=== PATIENT | male | born 1980 | race Hispanic/Latino ===

== ENCOUNTER 2017-01-28 01:11 | Emergency (ER) | payer OTHER ==
[2017-01-28 01:28] VITALS: RESP 18; TEMP 98.1
[2017-01-28] MEDS ORDERED: Oxycodone/Acetaminophen 5/325 mg Tab PO STA (02:43)
--- NOTE | 2017-01-28 02:47 | ED PDOC ---
Arrival/HPI - General Chief Complaint: Dental Pain Time Seen by Provider: 01/28/17 02:26 Historian: Patient - History of Present Illness Narrative History of Present Illness (Text): 01/28/17 02:52 37-year-old male presents today with left-sided dental pain that is worsened over the past 2 days. Patient states about 2 weeks ago he chipped his tooth and over the past 2 days the pain has gradually increased. Patient states he's been taking some Motrin for pain without improvement. Patient states he tried to make it through the night today but came in due to severe pain. Patient states he will see a dentist tomorrow. Patient denies fevers or chills. Denies trismus or drooling. No trauma or injury. No other complaints Time/Duration: Other (2 days) Symptom Onset: Gradual Symptom Course: Worsening Quality: Aching, Throbbing Severity Level: 8 Past Medical History - Provider Review Nursing Documentation Reviewed: Yes - Travel History Have you recently traveled outside [place] w/in the past 3 mons?: No - Tetanus Immunization Tetanus Immunization: Unknown - Psychiatric Hx Substance Use: Yes Family/Social History - Physician Review Nursing Documentation Reviewed: Yes Family/Social History: Unknown Family HX Smoking Status: y Hx Alcohol Use: Yes Hx Substance Use: Yes Allergies/Home Meds Allergies/Adverse Reactions: Allergies No Known Allergies Allergy (Verified 01/28/17 01:31) Review of Systems - Review of Systems Constitutional: absent: Fatigue, Fevers ENT: Other (Left lower dental pain) Respiratory: absent: SOB, Cough Cardiovascular: absent: Chest Pain, Palpitations Gastrointestinal: absent: Abdominal Pain, Nausea, Vomiting Musculoskeletal: absent: Arthralgias Skin: absent: Rash, Pruritis Psychiatric: absent: Anxiety, Depression Physical Exam Vital Signs Reviewed: Yes Vital Signs Temp Pulse Resp BP Pulse Ox 01/28/17 01:22 98.1 F 73 18 138/81 95 Temperature: Afebrile Blood Pressure: Normal Pulse: Regular Respiratory Rate: Normal Appearance: Positive for: Well-Appearing, Non-Toxic, Comfortable Pain Distress: None Mental Status: Positive for: Alert and Oriented X 3 - Systems Exam Head: Present: Atraumatic. No: Swelling Mouth: Present: Moist Mucous Membranes, Normal Lips, Normal Tounge. No: Drooling, Trismus, Normal Teeth (Left lower molar dental fracture and no edema no erythema no ecchymosis. Positive tenderness.) Pharnyx: Present: Normal. No: ERYTHEMA, EXUDATE Neck: Present: Normal Range of Motion, Trachea Midline. No: Lymphadenopathy Respiratory/Chest: Present: Clear to Auscultation, Good Air Exchange. No: Respiratory Distress, Accessory Muscle Use Cardiovascular: Present: Regular Rate and Rhythm, Normal S1, S2. No: Murmurs Medical Decision Making ED Course and Treatment: 01/28/17 02:49 Patient is nontoxic well-appearing in no distress with stable vital signs No trismus or drooling, moist mucous membranes Amoxicillin toradol percocet Patient reassessment: Patient is feeling better after medications. I advised follow-up with the dentist within the next 2 days. I advised immediate return is symptoms worsen persist or if new concerning symptoms develop Patient verbalizes understanding of discharge instructions and need for immediate followup. Impression: Toothache Motrin every 6 hours as needed for pain Amoxicillin 1 tablet 3 times daily x 10 days percocet; 1 tablet every 6 hours as needed for moderate to severe pain; may cause drowsiness. Follow-up with the dentist within the next 2 days Return immediately if symptoms worsen persist or if new concerning symptoms develop Disposition/Present on Arrival - Present on Arrival Any Indicators Present on Arrival: No History of DVT/PE: No History of Uncontrolled Diabetes: No Urinary Catheter: No History of Decub. Ulcer: No History Surgical Site Infection Following: None - Disposition Have Diagnosis and Disposition been Completed?: Yes Diagnosis: Toothache Disposition: HOME/ ROUTINE Disposition Time: 02:47 Patient Plan: Discharge Condition: GOOD Discharge Instructions (ExitCare): Toothache (ED) Additional Instructions: Motrin every 6 hours as needed for pain Amoxicillin 1 tablet 3 times daily x 10 days percocet; 1 tablet every 6 hours as needed for moderate to severe pain; may cause drowsiness. Follow-up with the dentist within the next 2 days Return immediately if symptoms worsen persist or if new concerning symptoms develop Prescriptions: Amoxicillin 500 mg PO TID #30 tab Ibuprofen [Motrin] 600 mg PO Q6H PRN #20 tab PRN Reason: pain/fever reduction oxyCODONE/Acetaminophen [Percocet 5/325 mg Tab] 1 tab PO Q6H PRN #5 tab PRN Reason: moderate to severe pain Referrals: Zach Amaro DMD [Non-Staff] - Follow up with primary [facility] [place] [facility] [place] - Follow up with primary [place] MD [Medical Doctor] - Follow up with primary Forms: WORK NOTE
[2017-01-28 03:40] VITALS: BP 116/71; PULSE 60; O2SAT 97
== END 2017-01-28 03:53 | disposition home or self-care (01) ==
LOC: ED 01:11
DX: K08.89 Other specified disorders of teeth and supporting structures (principal)
CPT/HCPCS: 96372; 99282; J1885

== ENCOUNTER 2017-12-26 14:21 | Emergency (ER) | payer SELFPAY ==
[2017-12-26 14:51] VITALS: TEMP 98.2; O2SAT 97
--- NOTE | 2017-12-26 15:37 | ED PDOC ---
Arrival/HPI - General Historian: Patient - History of Present Illness Time/Duration: Other (years) Symptom Onset: Other (longstanding) Symptom Course: Unchanged <Jhonathan Jung - Last Filed: 12/26/17 15:46> <Chelsea Lombardo - Last Filed: 12/27/17 13:05> - General Chief Complaint: ENT Problem Time Seen by Provider: 12/26/17 14:27 - History of Present Illness Narrative History of Present Illness (Text): 12/26/17 15:46 This is a 37 yo with no PMH (but does not follow up with doctors) who presents with complaint of "throat closing" x1 episode several days prior. Reports chronic cough and chronic sensation of "tickle" in throat causing cough, admits to being pack a day smoker for > 15 yrs. Reports throat closing episode lasting for approx 2 minutes after a coughing spell, but denies difficulty or pain with breathing during the episode, inability to swallow, choking on secretions, pooling of secretions, emesis, or wheezing/stridor during or after the episode. Denies current shortness of breath, wheezing, stridor, dysphagia, or change in voice. No new onset hoarseness. Denies chest pain, productive cough (has chronic dry cough with sensation of needing to mobilize something), post-tussive emesis, fevers, chills, focal or generalized weakness. Denies sick contacts. All other ROS in 12-system review negative. 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), denies illicits/IVDA PMD: none (Jhonathan Jung) Associated Symptoms (Text): 12/26/17 15:52 sensation of "throat closing" without choking/secretion pooling/wheezing/ dyspnea x1, 2 days ago (Jhonathan Jung) Past Medical History - Provider Review Nursing Documentation Reviewed: Yes - Infectious Disease Hx of Infectious Diseases: None - Tetanus Immunization Tetanus Immunization: Unknown - Psychiatric Hx Substance Use: Yes - Surgical History Hx Appendectomy: Yes - Anesthesia Hx Anesthesia: No <Jhonathan Jung - Last Filed: 12/26/17 15:46> Family/Social History - Physician Review Nursing Documentation Reviewed: Yes Family/Social History: Diabetes, Other (HLD) Smoking Status: Unknown If Ever Smoked Hx Alcohol Use: Yes Hx Substance Use: Yes Substance used: marijuana <Jhonathan Jung - Last Filed: 12/26/17 15:46> Allergies/Home Meds <Jhonathan Jung - Last Filed: 12/26/17 15:46> <Chelsea Lombardo - Last Filed: 12/27/17 13:05> Allergies/Adverse Reactions: Allergies No Known Allergies Allergy (Verified 01/28/17 01:31) Review of Systems - Physician Review All systems were reviewed & negative as marked: Yes (as per HPI) - Review of Systems Constitutional: Normal Eyes: Normal ENT: Sinus Congestion, Other (sensation of throat closing x1 for few minutes 2 days ag) Respiratory: Cough. absent: SOB, Sputum, Wheezing Cardiovascular: Normal. absent: Chest Pain, Palpitations, [place] Gastrointestinal: Normal. absent: Abdominal Pain, Nausea, Vomiting Skin: Normal. absent: Rash, Pruritis Neurological: Normal. absent: Headache, Dizziness <ErichJhonathan contreras - Last Filed: 12/26/17 15:46> Physical Exam Vital Signs Reviewed: Yes Temperature: Afebrile Blood Pressure: Normal Pulse: Regular Respiratory Rate: Normal Appearance: Positive for: Well-Appearing, Non-Toxic, Comfortable Pain Distress: None Mental Status: Positive for: Alert and Oriented X 3 - Systems Exam Head: Present: Atraumatic, Normocephalic Pupils: No: Pinpoint Extroacular Muscles: Present: EOMI. No: Gaze Palsy, Entrapment Conjunctiva: Present: Normal. No: Injected, Icteric Mouth: Present: Moist Mucous Membranes. No: Dry, Drooling Pharnyx: Present: Normal. No: ERYTHEMA, EXUDATE Nose (External): Present: Atraumatic. No: Abrasion, Laceration Nose (Internal): Present: No Active Bleeding. No: Epistaxis Neck: Present: Normal Range of Motion, Trachea Midline, Other (no appreciable thyromegaly, throat clear to auscultation, no stridor). No: MIDLINE TENDERNESS , JVD Respiratory/Chest: Present: Clear to Auscultation, Good Air Exchange, Other (wet -sounding cough during exam). No: Respiratory Distress, Accessory Muscle Use, Wheezes, Decreased Breath Sounds, Rales, Rhonchi, Tachypneic, Tender to Palpation Cardiovascular: Present: Regular Rate and Rhythm, Normal S1, S2, Peripheal Pulses Present (+2 radials and dorsalis pedis bilaterally). No: Murmurs, Irregular Rhythm, Tachycardic, Bradycardic Abdomen: Present: Normal Bowel Sounds. No: Tenderness, Distention Upper Extremity: Present: Normal Inspection, Normal ROM, NORMAL PULSES. No: Cyanosis, Edema, Tenderness, Swelling, Erythema Lower Extremity: Present: Normal Inspection, NORMAL PULSES, Normal ROM. No: Edema, CALF TENDERNESS, Cyanosis, Tenderness, Swelling Neurological: Present: GCS=15, Speech Normal, Motor Func Grossly Intact, Normal Sensory Function, Gait Normal Skin: Present: Warm, Dry, Normal Color. No: Rashes Lymphatic: No: Cervical Adenopathy Psychiatric: Present: Alert, Oriented x 3, Normal Insight, Normal Concentration , Normal Affect, Normal Mood <Jhonathan Jung - Last Filed: 12/26/17 15:46> <Chelsea Lombardo - Last Filed: 12/27/17 13:05> Vital Signs Temp Pulse Resp BP Pulse Ox 12/26/17 15:39 78 18 128/78 97 12/26/17 14:38 98.2 F 72 20 132/71 97 Medical Decision Making <Jhonathan Jung - Last Filed: 12/26/17 15:46> <Chelsea Lombardo - Last Filed: 12/27/17 13:05> ED Course and Treatment: 12/26/17 15:58 Ddx: Chronic bronchitis 2/2 smoking vs early onset COPD, may have mild- intermittent bronchospasm, unlikely PNA due to chronicity (years), not anaphylactic rxn Lack of acute hoarseness, productive cough, and/or fevers less suggestive of acute or infectious process Likely chronic bronchitis or early onset COPD given > 15 pack years Instructed patient to use Mucinex or Robitussin OTC for improved cough clearance Prescriptions for Tessalon Perles, Z-aldo, and Ventolin HFA Instructed to cease smoking Instructed to establish with PMD and follow up within 1 week or follow up and [facility] Pt expressed understanding and agreement, discharged to home Seen, reviewed, and discussed with attending, Dr. Lombardo (Jhonathan Jung) - Medication Orders Current Medication Orders: Discontinued Medications Dexamethasone (Decadron Inj) 10 mg IM STAT STA Stop: 12/26/17 15:07 Last Admin: 12/26/17 15:23 Dose: 10 mg IM Administration Charges Document 12/26/17 15:23 GMD (Rec: 12/26/17 15:23 GMD [id number]) Injection Site MAR Injection Site Left Deltoid Charges for Administration # of IM Administrations 1 - PA / LOSS PREVENTION SPECIALIST / Resident Statement MD/ has reviewed & agrees with the documentation as recorded. <Chelsea Lombardo - Last Filed: 12/27/17 13:05> Disposition/Present on Arrival - Present on Arrival Any Indicators Present on Arrival: No History of DVT/PE: No History of Uncontrolled Diabetes: No Urinary Catheter: No History of Decub. Ulcer: No History Surgical Site Infection Following: None - Disposition Have Diagnosis and Disposition been Completed?: Yes Disposition Time: 14:47 Patient Plan: Discharge <Jhonathan Jung - Last Filed: 12/26/17 15:46> <Chelsea Lombardo - Last Filed: 12/27/17 13:05> - Disposition Diagnosis: Bronchitis, Chronic coughing Disposition: HOME/ ROUTINE Condition: GOOD Discharge Instructions (ExitCare): Smoking: Not Just Harmful to Your Lungs and Heart, Chronic Bronchitis, Chronic Bronchitis (DC), Cough, Adult (DC), Quitting Smoking Additional Instructions: TONY TRIVEDI, thank you for letting us take care of you today. Your providers were Dr. Lombardo and Dr. Jung, and you were treated for THROAT CLOSING/ BREATHING. The emergency medical care you received today was directed at your acute symptoms. Please fill your prescriptions for Zithromax, Tessalon Perles, and Ventolin HFA, and take as directed. It may take several days for your symptoms to resolve. Return to the Emergency Department if your symptoms worsen , do not improve, or if you have any other problems. Please contact your doctor or call one of the physicians/clinics you have been referred to that are listed on the Patient Visit Information form that is included in your discharge packet. Bring any paperwork you were given at discharge with you along with any medications you are taking to your follow up visit. Our treatment cannot replace ongoing medical care by a primary care provider outside of the emergency department. Thank you for allowing the [facility] team to be part of your care today. If you had an X-Ray or CT scan: A Radiologist will review the ED reading if any change in treatment is needed we will contact you. If you had a blood, urine, or wound culture: It will take several days for the results, if any change in treatment is needed we will contact you. If you had an STI test: It will take 48 hours for the results. Please call after 1 week if you have not heard back. Prescriptions: Albuterol HFA [Ventolin HFA 90 mcg/actuation (8 g)] 2 puff IH Q4H PRN #1 inhaler PRN Reason: Cough/Bronchospasm Azithromycin [Z-Aldo] 250 mg PO DAILY #6 tab Benzonatate [Tessalon Perles] 100 mg PO TID PRN #21 sgl PRN Reason: Cough Referrals: [facility] [place] - Follow up with primary Forms: [employer] (Greek)
[2017-12-26 15:40] VITALS: BP 128/78; PULSE 78; RESP 18
== END 2017-12-26 15:39 | disposition home or self-care (01) ==
LOC: ED 14:21
DX: J40 Bronchitis, not specified as acute or chronic (principal); R05 Cough
CPT/HCPCS: 96372; 99283; J1100

== ENCOUNTER 2018-09-30 04:43 | Emergency (ER) | payer SELFPAY ==
[2018-09-30 04:48] VITALS: RESP 18; TEMP 97.9; O2SAT 100
--- NOTE | 2018-09-30 05:20 | ED PDOC ---
Arrival/HPI - General Chief Complaint: Cough, Cold, Congestion Time Seen by Provider: 09/30/18 05:03 Historian: Patient - History of Present Illness Narrative History of Present Illness (Text): 09/30/18 05:12 38 M with no significant Past medical history presents with cc of nasal congestion and trouble breathing through nose. Patient describes nasal discomfort as "nose being on fire". 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 Patient mentions that he tried to rinse nose with saline which yielded no relief. Patient denies any fevers, chills, headache, dizziness, chest pain, shortness of breath, dyspnea on exertion, cough, diaphoresis, abdominal pain, nausea, vomiting, diarrhea, back pain, neck pain, or any other complaint. Time/Duration: 24 hours Symptom Onset: Gradual Symptom Course: Unchanged Activities at Onset: Light Context: Home Past Medical History - Provider Review Nursing Documentation Reviewed: Yes - Infectious Disease Hx of Infectious Diseases: None - Tetanus Immunization Tetanus Immunization: Unknown - Psychiatric Hx Substance Use: Yes - Surgical History Hx Appendectomy: Yes - Anesthesia Hx Anesthesia: Yes Hx Anesthesia Reactions: No Hx Malignant Hyperthermia: No Family/Social History - Physician Review Nursing Documentation Reviewed: Yes Family/Social History: No Known Family HX Smoking Status: Unknown If Ever Smoked Hx Alcohol Use: Yes Hx Substance Use: Yes Substance used: marijuana Allergies/Home Meds Allergies/Adverse Reactions: Allergies No Known Allergies Allergy (Verified 01/28/17 01:31) Review of Systems - Physician Review All systems were reviewed & negative as marked: Yes - Review of Systems Constitutional: Normal Eyes: Normal ENT: Rhinorrhea. absent: Sore Throat Respiratory: Other (trouble breathing through nose) Cardiovascular: Normal Gastrointestinal: Normal Genitourinary Male: Normal Musculoskeletal: Normal Skin: Normal Neurological: Normal Endocrine: Normal Hemo/Lymphatic: Normal Psychiatric: Normal Physical Exam - Physical Exam Narrative Physical Exam (Text): 09/30/18 05:22 Gen: VS reviewed, alert, well developed, well nourished, nontoxic, mild distress. ENT: Rhinorrhea, boggy nasal turbinate Eye: EOMI, PERRL. Neck: no JVD, supple, no adenopathy. CV: regular rate, regular rhythm, no rubs, no murmur, no gallops, S1, S2, pulses equal and strong. Pulm: no distress, clear to auscultation, no wheeze, no rhonchi, breath sounds equal, no rales. Abd: soft, nontender, no guarding, no rebound, no rigidity, normal bowel sounds. Ext: no edema. Skin: good color, no rash, no cyanosis. Psych: responds appropriately to questions, normal affect. Neuro: oriented x 3, CN2-12 intact grossly, motor intact, sensation intact. Vital Signs Temp Pulse Resp BP Pulse Ox 09/30/18 04:48 97.9 F 65 18 157/95 H 100 Medical Decision Making ED Course and Treatment: 09/30/18 05:58 patient seen for nasal congestion and runny nose. patient forcibly attempts to breath through his nose which results in significant discomfort-patient informed it is likely better to blow runny nose outward. furthermore, the patient probably incorrectly used a netipot. without significant sinus tenderness or fever it is unlikely clinical presentation is consistent with acute sinusitis that would warrant antibiotics. - RAD Interpretation Narrative RAD Interpretations (Text): 09/30/18 05:56 xr sinjus my read; no overt fluid level seen in the sinuses Biomedical Field Service Engineer: ED Physician - PA / CARPENTER ASSISTANT / Resident Statement MD/DO has reviewed & agrees with the documentation as recorded. - Scribe Statement The provider has reviewed the documentation as recorded by the [place] All medical record entries made by the [place] were at my direction and personally dictated by me. I have reviewed the chart and agree that the record accurately reflects my personal performance of the history, physical exam, medical decision making, and the department course for this patient. I have also personally directed, reviewed, and agree with the discharge instructions and disposition. Disposition/Present on Arrival - Present on Arrival Any Indicators Present on Arrival: No History of DVT/PE: No History of Uncontrolled Diabetes: No Urinary Catheter: No History of Decub. Ulcer: No History Surgical Site Infection Following: None - Disposition Have Diagnosis and Disposition been Completed?: Yes Diagnosis: Allergic rhinitis Disposition: HOME/ ROUTINE Disposition Time: 06:05 Patient Plan: Discharge Condition: STABLE Discharge Instructions (ExitCare): Seasonal Allergies (DC) Prescriptions: Ibuprofen [Motrin Tab] 600 mg PO QID #30 tab Pseudoephedrine HCl [Sudafed] 30 mg PO QID 5 Days #20 tablet Forms: [facility] (Vietnamese)
[2018-09-30 06:18] VITALS: BP 148/72; PULSE 63
--- NOTE | 2018-09-30 10:50 | RAD ---
Date of service: 09/30/2018 PROCEDURE: Sinus HISTORY: congestion COMPARISON: TECHNIQUE: Four views of the sinuses FINDINGS: Sinuses are well aerated. There are no fluid levels. IMPRESSION: Negative study
== END 2018-09-30 06:12 | disposition home or self-care (01) ==
LOC: ED 04:43
DX: J30.9 Allergic rhinitis, unspecified (principal)